=== PATIENT | male | born 1945 | race Caucasian/White ===

== ENCOUNTER 2018-08-17 17:57 | Emergency (ER) | payer OTHER ==
--- NOTE | 2018-08-17 18:43 | EDM.PDOC ---
<Tamy Hernandez N - Last Filed: 08/17/18 19:40> ED HPI GENERAL MEDICAL PROBLEM - General Chief Complaint: Back Pain or Injury Stated Complaint: [facility] Time Seen by Provider: 08/17/18 18:25 Source of Information: Reports: Patient History Limitations: Reports: No Limitations - History of Present Illness INITIAL COMMENTS - FREE TEXT/NARRATIVE: Lul is a 72-year-old male who presents to the ER by ambulance with complaints of acute low back pain for the past 2-3 days. He reports a history of chronic back pain associated with a "bulged disk" in the same region. He was working on [employer], and woke up with severe muscle spasms in his lower back the next morning. He states that the pain occurs at a "300/10" in the sitting and standing positions, but is reduced to a 2/10 at rest. He has tried Tylenol at home without relief. He did receive 50 mcg Fentanyl in the ambulance prior to arrival. Denies urinary incontinence, fevers/chills, or a history of trauma. 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] 75 mg PO BID 08/17/18 [History] Rivaroxaban [Xarelto] 20 mg PO DAILY 08/17/18 [History] Past Medical History HEENT History: Reports: Impaired Vision Cardiovascular History: Reports: Afib, Hypertension Respiratory History: Reports: Sleep Apnea Other Respiratory History: cpap Gastrointestinal History: Reports: None Musculoskeletal History: Reports: Back Pain, Chronic, Gout Neurological History: Reports: Head Trauma, TIA Psychiatric History: Reports: Anxiety, Depression, PTSD Endocrine/Metabolic History: Reports: Obesity/BMI 30+ - Infectious Disease History Infectious Disease History: Reports: Chicken Pox, Mumps - Past Surgical History Head Surgeries/Procedures: Reports: None HEENT Surgical History: Reports: Adenoidectomy, Detached Retina, Tonsillectomy Cardiovascular Surgical History: Reports: None Respiratory Surgical History: Reports: None GI Surgical History: Reports: Appendectomy, Colonoscopy Endocrine Surgical History: Reports: None Neurological Surgical History: Reports: None Musculoskeletal Surgical History: Reports: Knee Replacement Dermatological Surgical History: Reports: None Social & Family History - Tobacco Use Smoking Status *Q: Former Smoker Used Tobacco, but Quit: Yes Month/Year Tobacco Last Used: 1992 Second Hand Smoke Exposure: No - Caffeine Use Caffeine Use: Reports: Coffee - Alcohol Use Days Per Week of Alcohol Use: 7 Number of Drinks Per Day: 2 Total Drinks Per Week: 14 - Recreational Drug Use Recreational Drug Use: No ED ROS GENERAL - Review of Systems Review Of Systems: See Below Constitutional: Reports: No Symptoms. Denies: Fever, Chills, Weakness HEENT: Reports: Rhinitis Respiratory: Reports: No Symptoms Cardiovascular: Reports: No Symptoms Endocrine: Reports: No Symptoms GI/Abdominal: Reports: No Symptoms : Reports: No Symptoms Musculoskeletal: Reports: Back Pain (Over lumbosacral region), Muscle Pain ( Lumbosacral pain) Skin: Reports: No Symptoms Neurological: Reports: No Symptoms Psychiatric: Reports: No Symptoms Hematologic/Lymphatic: Reports: No Symptoms Immunologic: Reports: No Symptoms ED EXAM,LOWER BACK PAIN/INJURY - Physical Exam Exam: See Below Text/Narrative:: Lul is a pleasant male in no acute distress. On exam, he is lying on his left side for comfort. Denies any tenderness with palpation of his lumbosacral spine. Exam Limited By: No Limitations General Appearance: Alert, WD/WN, No Apparent Distress Respiratory/Chest: No Respiratory Distress, Lungs Clear, Normal Breath Sounds, No Accessory Muscle Use, Chest Non-Tender Cardiovascular: Normal Peripheral Pulses, Regular Rate, Rhythm, Other (Trace edema) GI/Abdominal: Normal Bowel Sounds, Soft, Non-Tender, No Organomegaly, No Distention, No Abnormal Bruit, No Mass (Male) Exam: Deferred Rectal (Males) Exam: Deferred Back Exam: Normal Inspection, Other (Reproduction of low back pain when right leg is lifted 45 degrees). No: Muscle Spasm, Paraspinal Tenderness, Vertebral Tenderness Neurological: Alert, Normal Mood/Affect, No Motor/Sensory Deficits, Oriented x 3. No: Saddle Anesthesia Psychiatric: Normal Affect, Normal Mood Skin Exam: Warm, Dry, Intact, Normal Color, No Rash Lymphatic: No Adenopathy Course - Vital Signs Last Recorded V/S: Last Vital Signs Temp 96.7 F 08/17/18 18:00 Pulse 66 08/17/18 21:01 Resp 16 08/17/18 18:00 BP 149/97 H 08/17/18 21:01 Pulse Ox 97 08/17/18 21:01 - Orders/Labs/Meds Orders: Active Orders 24 hr Category Date Time Status Abdomen Pelvis wo Cont [CT] Urgent Exams 08/17/18 22:34 Taken Lumbar Spine 2 or 3V [CR] Stat Exams 08/17/18 21:15 Taken CREATINE KINASE,CK [CHEM] Stat Lab 08/17/18 23:40 Ordered UA W/MICROSCOPIC [URIN] Urgent Lab 08/17/18 22:34 Ordered Sodium Chloride 0.9% [Saline Flush] Med 08/17/18 22:00 Active 10 ml FLUSH 6XDAY PRN Medication Orders Sodium Chloride (Saline Flush) 10 ml FLUSH 6XDAY PRN PRN Reason: Dry Eyes Last Admin: 08/17/18 22:03 Dose: 10 ml Admin: 08/17/18 21:10 Dose: 10 ml Admin: 08/17/18 19:10 Dose: 10 ml Labs: Laboratory Tests 08/17/18 08/17/18 08/17/18 Range/Units 22:45 22:45 22:45 WBC 9.3 (4.5-11.0) K/uL RBC 5.42 (4.30-5.90) M/uL Hgb 17.6 H (12.0-15.0) g/dL Hct 49.5 (40.0-54.0) % MCV 91 (80-98) fL MCH 33 H (27-31) pg MCHC 36 (32-36) % Plt Count 155 (150-400) K/uL Neut % (Auto) 66 (36-66) % Lymph % (Auto) 19 L (24-44) % [place] % (Auto) 12 H (2-6) % Eos % (Auto) 3 (2-4) % Baso % (Auto) 0 (0-1) % Sodium 139 L (140-148) mmol/L Potassium 4.3 (3.6-5.2) mmol/L Chloride 103 (100-108) mmol/L Carbon Dioxide 27 (21-32) mmol/L Anion Gap 13.3 (5.0-14.0) mmol/L BUN 24 H (7-18) mg/dL Creatinine 1.4 H (0.8-1.3) mg/dL Est Cr Clr Drug Dosing 46.99 mL/min Estimated GFR (MDRD) 50 L (>60) Glucose 116 H (74-106) mg/dL Lactic Acid 1.5 (0.4-2.0) mmol/L Calcium 9.2 (8.5-10.1) mg/dL Total Bilirubin 0.9 (0.2-1.0) mg/dL AST 19 (15-37) U/L ALT 26 (12-78) U/L Alkaline Phosphatase 76 (46-116) U/L Troponin I < 0.017 (0.000-0.056) ng/mL Total Protein 7.1 (6.4-8.2) g/dL Albumin 3.4 (3.4-5.0) g/dL Globulin 3.7 H (2.3-3.5) g/dL Albumin/Globulin Ratio 0.9 L (1.2-2.2) Lipase 97 (73-393) U/L Meds: Medications Generic Name Dose Route Start Last Admin Trade Name Freq PRN Reason Stop Dose Admin Sodium Chloride 10 ml 08/17/18 22:00 08/17/18 22:03 Saline Flush FLUSH 10 ml 6XDAY PRN Administration Dry Eyes Discontinued Medications Generic Name Dose Route Start Last Admin Trade Name Freq PRN Reason Stop Dose Admin Cyclobenzaprine HCl 10 mg 08/17/18 18:58 08/17/18 19:07 Flexeril PO 08/17/18 18:59 10 mg ONETIME ONE Administration Hydromorphone HCl 1 mg 08/17/18 21:04 08/17/18 21:17 Dilaudid IVPUSH 08/17/18 21:05 1 mg ONETIME ONE Administration Ketorolac Tromethamine 30 mg 08/17/18 18:58 08/17/18 19:07 Toradol IVPUSH 08/17/18 18:59 30 mg ONETIME ONE Administration Ondansetron HCl 4 mg 08/17/18 21:50 08/17/18 22:02 Zofran IVPUSH 08/17/18 21:51 4 mg ONETIME ONE Administration Departure - Departure Disposition: DC/[facility]fer to [facility] Clinical Impression: Intractable low back pain - Discharge Information Referrals: PCP,None [Primary Care Provider] - Forms: ED Department Discharge - My Orders Last 24 Hours: My Active Orders 08/17/18 21:15 Lumbar Spine 2 or 3V [CR] Stat 08/17/18 22:00 Sodium Chloride 0.9% [Saline Flush] 10 ml FLUSH 6XDAY PRN 08/17/18 22:34 Abdomen Pelvis wo Cont [CT] Urgent UA W/MICROSCOPIC [URIN] Urgent 08/17/18 23:40 CREATINE KINASE,CK [CHEM] Stat - Assessment/Plan Last 24 Hours: My Active Orders 08/17/18 21:15 Lumbar Spine 2 or 3V [CR] Stat 08/17/18 22:00 Sodium Chloride 0.9% [Saline Flush] 10 ml FLUSH 6XDAY PRN 08/17/18 22:34 Abdomen Pelvis wo Cont [CT] Urgent UA W/MICROSCOPIC [URIN] Urgent 08/17/18 23:40 CREATINE KINASE,CK [CHEM] Stat <HalleyrClarence - Last Filed: 08/17/18 23:42> ED HPI GENERAL MEDICAL PROBLEM Lower Back Pain Score (Numeric/FACES): 8 Course - Orders/Labs/Meds Labs: Laboratory Tests 08/17/18 08/17/18 08/17/18 Range/Units 22:45 22:45 22:45 WBC 9.3 (4.5-11.0) K/uL RBC 5.42 (4.30-5.90) M/uL Hgb 17.6 H (12.0-15.0) g/dL Hct 49.5 (40.0-54.0) % MCV 91 (80-98) fL MCH 33 H (27-31) pg MCHC 36 (32-36) % Plt Count 155 (150-400) K/uL Neut % (Auto) 66 (36-66) % Lymph % (Auto) 19 L (24-44) % [place] % (Auto) 12 H (2-6) % Eos % (Auto) 3 (2-4) % Baso % (Auto) 0 (0-1) % Sodium 139 L (140-148) mmol/L Potassium 4.3 (3.6-5.2) mmol/L Chloride 103 (100-108) mmol/L Carbon Dioxide 27 (21-32) mmol/L Anion Gap 13.3 (5.0-14.0) mmol/L BUN 24 H (7-18) mg/dL Creatinine 1.4 H (0.8-1.3) mg/dL Est Cr Clr Drug Dosing 46.99 mL/min Estimated GFR (MDRD) 50 L (>60) Glucose 116 H (74-106) mg/dL Lactic Acid 1.5 (0.4-2.0) mmol/L Calcium 9.2 (8.5-10.1) mg/dL Total Bilirubin 0.9 (0.2-1.0) mg/dL AST 19 (15-37) U/L ALT 26 (12-78) U/L Alkaline Phosphatase 76 (46-116) U/L Troponin I < 0.017 (0.000-0.056) ng/mL Total Protein 7.1 (6.4-8.2) g/dL Albumin 3.4 (3.4-5.0) g/dL Globulin 3.7 H (2.3-3.5) g/dL Albumin/Globulin Ratio 0.9 L (1.2-2.2) Lipase 97 (73-393) U/L - Re-Assessments/Exams Free Text/Narrative Re-Assessment/Exam: 08/17/18 22:12 Called discussed case with [place] [employer] representative at 22:10 they will review his case for appropriate for admission 08/17/18 22:35 Discussed the case with [place] [employer] representative 20:35 would like the patient evaluated for renal stone prior to except Departure - Departure Time of Disposition: 23:42 Condition: Fair - Assessment/Plan Plan: Assessment Acuity = acute Site and laterality = low back pain intractable Etiology = probable muscle skeletal injury Manifestations = none Location of injury = Home Lab values = CBC unremarkable creatinine elevated 1.4 consistent with chronic renal failure stage GIII a, troponin is negative lipase negative lactic acid negative, CT scan of the abdomen renal stone protocol show no acute process in the abdomen Plan I did review the case with the [facility] [employer] representative she kindly accepted the patient at 23:42 he will be transferred via EMS ground This note was dictated using [employer] voice recognition software please call with any questions on syntax or grammar.
[2018-08-17] MEDS ORDERED: Cyclobenzaprine 10 MG Tab PO ONE (18:58)
[2018-08-17] MEDS ORDERED: Ketorolac 30 MG/ML SDV IVPUSH ONE (18:58)
[2018-08-17] MEDS: Sodium Chloride 0.9% 10 ML Syringe FLUSH PRN ×3 (19:10→22:03)
[2018-08-17] MEDS ORDERED: HYDROmorphone 1 MG/ML Syringe IVPUSH ONE (21:04)
[2018-08-17] MEDS ORDERED: Ondansetron 4 MG/2 ML SDV IVPUSH ONE (21:50)
--- NOTE | 2018-08-18 08:57 | CR ---
Lumbar Spine 2 or 3V CLINICAL HISTORY: Back pain FINDINGS: There is minimal anterior wedging of L1. This is likely of remote chronology. There is lower lumbar spondylosis. There is a transitional lumbosacral segment. Alignment is maintained. There is some osteoarthritis in the lower lumbar facets. 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
== END 2018-08-18 00:40 ==
LOC: JP.ED 17:57
DX: M54.5 Low back pain (principal); I48.91 Unspecified atrial fibrillation; F41.9 Anxiety disorder, unspecified; Z87.891 Personal history of nicotine dependence; Z79.899 Other long term (current) drug therapy
CPT/HCPCS: 36415; 72100; 74176; 80053; 81001; 82550; 83605; 83690; 84484; 85025; 96374; 96375; 96376; 99285; A9270; J1170; J1885; J2405